=== PATIENT | female | born 1960 | race African-American/Black ===

== ENCOUNTER 2017-03-21 06:26 | Day surgery (SDC) ==
[2015-06-22 16:41] VITALS: BMI 29.9
[2017-03-21] MEDS ORDERED: LIDOCAINE 1% 20 ML MDV ID ONE (07:10)
[2017-03-21 07:27] VITALS: TEMP 97.9
[2017-03-21] MEDS ORDERED: VERSED ONE (08:09)
[2017-03-21] MEDS ORDERED: DIPRIVAN 20 ML VIAL IVP ONE (08:09)
[2017-03-21 09:11] VITALS: BP 126/86
--- NOTE | 2017-03-21 12:56 | OP ---
PROCEDURE: COLONOSCOPY TO THE CECUM. ENDOSCOPIST: Yohana GOMES M.D. INDICATION: SURVEILLANCE, HISTORY OF SERRATED POLYPS, LAST COLONOSCOPY 5 YEARS PRIOR TO THIS EXAM. INSTRUMENT: [id number]. MEDICATION: PER ANESTHESIA. PROCEDURE: The patient was positioned for colonoscopy. The digital rectal exam was negative. The colonoscope was inserted through the anus and advanced to the cecum. The cecum was identified using the ileocecal valve and the appendiceal orifice as landmarks. The scope was slowly withdrawn through an adequately prepped colon. There was no evidence for inflammatory change, polyp or mass. The retroflex exam was otherwise negative. The patient tolerated the procedure well without immediate complication. Withdrawal time 7 minutes and 26 seconds. PLAN: 1. Repeat exam in 5 to 10 years. CC: Dr. Dany TAVAREZ
== END 2017-03-21 09:32 | disposition home or self-care (01) ==
LOC: SURG 06:26
PROVIDERS: ATTEND Internal Medicine Gastroenterology
DX: Z09 Encounter for follow-up examination after completed treatment for conditions other than malignant neoplasm (principal); Z86.010 Personal history of colon polyps

== ENCOUNTER 2017-07-05 10:08 | Outpatient (CLI) ==
[2015-06-22 16:41] VITALS: BMI 29.9
--- NOTE | 2017-07-06 10:11 | MAMMO ---
EXAM: Bilateral digital screening mammogram (2-D and 3-D) History: Screening Comparison: Bilateral mammogram 04/18/2015 Findings: MLO and CC views of bilateral breasts demonstrate heterogeneously dense breast parenchyma which can obscure small lesions. CAD was reviewed by the radiologist. Tomosynthesis was performed. Stable benign calcification within the right breast. There are no dominant masses, no suspicious arlene rocalcifications and no architectural distortions Impression: Benign stable mammogram. Recommend followup routine screening mammography in 1 year. BIRADS 2
== END 2017-07-05 10:09 | disposition home or self-care (01) ==
LOC: RAD 10:08
PROVIDERS: ATTEND Family Medicine
DX: Z12.31 Encounter for screening mammogram for malignant neoplasm of breast (principal)
CPT/HCPCS: 77067

== ENCOUNTER 2017-07-18 07:12 | Outpatient (CLI) ==
[2015-06-22 16:41] VITALS: BMI 29.9
--- NOTE | 2017-07-18 08:24 | US ---
EXAM: Right upper quadrant abdominal ultrasound. History: Follow-up hepatic hemangioma. Comparison: Abdominal ultrasound 10/27/2012 Technique: Multiple sonographic images through the abdomen were obtained. Color duplex Doppler was used to interrogate vascular flow. Findings: Liver is not enlarged. 2.5 cm echogenic liver lesion is not significantly changed. There i s antegrade flow within the main portal vein. No abdominal ascites. Limited visualization of the ri ght kidney demonstrates no evidence for hydronephrosis. The visualized pancreas demonstrates no ryder s abnormality. There is ring-down artifact seen within the gallbladder with possible small 3 mm gallbladder wall karthik yp. No gallbladder wall thickening. No shadowing gallstones. Common bile duct measures 0.4 cm in ca liber. Impression: 1. No significant interval change in the echogenic liver lesion which probably represents a hemangio ma. Confirmation can be obtained with dedicated MRI liver mass protocol if deemed clinically necessar y. 2. Ring down artifact within the gallbladder wall suggesting adenomyomatosis and suspect small gallb ladder wall polyp.
== END 2017-07-18 07:13 | disposition home or self-care (01) ==
LOC: RAD 07:12
PROVIDERS: ATTEND Family Medicine
DX: D86.89 Sarcoidosis of other sites (principal); R74.8 Abnormal levels of other serum enzymes